=== PATIENT | male | born 1950 | race Caucasian/White ===

== ENCOUNTER 2023-11-23 18:55 | Inpatient (IN) | payer MEDICARE, BC ==
[~2023-11-23] VITALS: Ht 182.9 cm; Wt 133.0 kg
[~2023-11-23 18:55] MED LIST: NORepinephrine 1 mg/ml inj IV ONE
--- NOTE | 2023-11-23 19:07 | NUR ---
INTUBATING PT. RT AT BEDSIDE.
[2023-11-23] MEDS: LidoCAINE 2% Topical Jelly 11mL syringe (UROJET) TOP ONE (19:10)
[2023-11-23] MEDS: FENTANYL-0.9 % NACL/PF 100 ML IV SCH (19:10)
--- NOTE | 2023-11-23 19:14 | NUR ---
CALLED PHARMACY TO PREPARE DRIPS
[2023-11-23 19:15] VITALS: BP 123/64; PULSE 102; RESP 16; O2SAT 100
[2023-11-23 19:22] LABS: ABG BASE EXCESS -15.9 mmol/L (-2.0-3.0); ABG HCO3 12.6 mmol/L (21.0-28.0); ABG OXYGEN SATURATION 99.5 % (94.0-98.0); ABG PCO2 (T) 39.3 mmHg (35.0-48.0); ABG PH (T) 7.121 (7.350-7.450); ABG PO2 (T) 323.1 mmHg (83.0-108.0); ALLEN'S TEST Modified; FCOHb 0.2 % (0.5-1.5); FHHb 0.5 % (0.0-5.0); FMetHb 0.6 % (0.0-1.5); FO2Hb 98.7 % (94.0-98.0); MODE VENT - prvc; PATIENT TEMPERATURE 36.3; PEEP 5 cm H2O; RESPIRATORY RATE 16 b/min; TIDAL VOLUME 550 mL
[2023-11-23 19:28] LABS: BASOPHILS # (AUTO) 0.1 X10'3 (0-0.2); BASOPHILS % (AUTO) 1.2 % (0-1); EOSINOPHILS # (AUTO) 0.1 X10'3 (0-0.9); HEMATOCRIT 28.6 % (42.0-52.0); LYMPHOCYTES # (AUTO) 1.9 X10'3 (1.1-4.8); MEAN CORPUSCULAR HEMOGLOBIN 30.1 PG (27.0-31.0); MEAN CORPUSCULAR HGB CONC 31.6 g/dL (33.0-36.5); MEAN CORPUSCULAR VOLUME 95.2 FL (78-98); MEAN PLATELET VOLUME 7.2 FL (7.4-10.4); MONOCYTES # (AUTO) 0.2 X10'3 (0-0.9); MONOCYTES % (AUTO) 1.7 % (2-12); NEUTROPHILS # (AUTO) 9.6 X10'3 (1.8-7.7); NEUTROPHILS % (AUTO) 80.1 % (42-75); PLATELET COUNT 185 X10'3 (140-440); RED BLOOD COUNT 3.01 X10'6 (4.70-6.10); WHITE BLOOD COUNT 11.9 X10'3 (4.5-11.0)
--- NOTE | 2023-11-23 19:30 | NUR ---
CALLED PHARMACY TO REQUEST SEDATION MED AGAIN. THEY STATE THEY WILL BRING MEDS.
[2023-11-23 19:38] LABS: INR 1.4 INR; PROTHROMBIN TIME 14.7 SECONDS (9.0-12.0)
[2023-11-23 19:46] LABS: ALANINE AMINOTRANSFERASE 85 U/L (12-78); ALBUMIN 1.3 G/DL (3.4-5.0); ALBUMIN/GLOBULIN RATIO 0.4 (1.1-1.5); ALKALINE PHOSPHATASE 132 IU/L (46-116); ANION GAP 14 (8-16); ASPARTATE AMINO TRANSFERASE 343 U/L (10-37); BILIRUBIN,TOTAL 1.2 MG/DL (0.1-1.0); BLOOD UREA NITROGEN 48 MG/DL (7-18); BUN/CREATININE RATIO 16.1 (10.0-20.0); CALCIUM 7.3 MG/DL (8.5-10.1); CHLORIDE 106 MMOL/L (99-107); CREATININE 2.99 MG/DL (0.60-1.10); GLUCOSE 179 MG/DL (70-104); POTASSIUM 4.1 MMOL/L (3.5-5.1); SODIUM 138 MMOL/L (135-145); TOTAL CARBON DIOXIDE 18.2 MMOL/L (24-32); TOTAL PROTEIN 4.4 G/DL (6.4-8.2); eCRCL 24 ML/MIN; eGFR 21 ML/MIN
--- NOTE | 2023-11-23 19:46 | NUR ---
WAITING FOR BP TO IMPROVE AND SEDATION MEDICATION TO BE DELIVERED PRIOR TO TAKING PT TO CT. AWARE. FLUIDS RUNNING.
[2023-11-23] MEDS: normal saline 1000ML IV soln IVB ONE ×2 (19:47)
[2023-11-23 19:53] LABS: PRO BRAIN NATRIURETIC PEPTIDE 11466 PG/ML (0-125)
--- NOTE | 2023-11-23 20:15 | NUR ---
SPOKE TO . AGREES PT IS MORE STABLE AT THIS POINT FOR CT TRIP. RT CALLED. CALLED CT/
[2023-11-23 20:27] LABS: ETHANOL < 10 MG/DL (<10)
[2023-11-23 20:32] LABS: BILIRUBIN,URINE SMALL (Neg); CLARITY,URINE SLIGHTLY CLOUDY (Clear); COLOR,URINE YELLOW (Yellow); GLUCOSE, URINE NEGATIVE (Neg); KETONES,URINE TRACE mg/dl (Neg); LEUKOCYTE ESTERASE ,URINE NEGATIVE (Neg); NITRITES, URINE NEGATIVE (Neg); OCCULT BLOOD,URINE TRACE-INTACT (Neg); PH,URINE 5.5 (4.8-8.0); PROTEIN,URINE 30 mg/dl (Neg)
[2023-11-23 20:38] LABS: UA COLLECTION TYPE FOLEY CATH
[2023-11-23 20:40] LABS: HYALINE CASTS 0-3 /LPF (NEGATIVE); WBC,URINE 0-4 /HPF (0-4)
[2023-11-23 20:41] LABS: BACTERIA,URINE 1+ /HPF (Neg); COARSE GRANULAR CAST 0-3 /LPF (NEGATIVE); SQUAMOUS EPITHELIAL CELL,UR FEW /LPF (FEW)
[2023-11-23 20:46] VITALS: BP 118/64; PULSE 98; RESP 16; O2SAT 98
--- NOTE | 2023-11-23 20:47 | NUR ---
PT IS BACK FROM CT.
[2023-11-23] MEDS: MIDAZOLAM IN NACL,ISO-OSMOT/PF 100 ML IV SCH (20:58)
[2023-11-23] MEDS: CefTRIAXone/D5W-Rocephin 1gm 50 ML IV ONE (20:58)
[2023-11-23 21:04] VITALS: TEMP 97.2
--- NOTE | 2023-11-23 21:10 | NUR ---
REASSESSED PT AT [facility].
--- NOTE | 2023-11-23 21:24 | NUR ---
MD REQUESTED RT TO MOVE ETT TUBE BACK PER RADIOLOGIST REPORT. RT AT BEDSIDE.
[2023-11-23 21:28] VITALS: BP 88/58; PULSE 99; RESP 16; O2SAT 100
[2023-11-23] MEDS: azithromycin/NS 500mg/250ml 250 ML IV ONE (21:48)
[2023-11-23 21:55] LABS: URINE AMPHETAMINE SCREEN NEGATIVE (Neg); URINE BARBITUATE SCREEN NEGATIVE (Neg); URINE BENZODIAZEPINES SCREEN NEGATIVE (Neg); URINE CANNABINOID SCREEN NEGATIVE (Neg); URINE COCAINE SCREEN NEGATIVE (Neg); URINE METHADONE SCREEN NEGATIVE (Neg); URINE OPIATE SCREEN NEGATIVE (Neg); URINE PHENCYCLIDINE SCREEN NEGATIVE (Neg)
[2023-11-23] MEDS ORDERED: ondansetron/PF 4mg/2ml inj IV PRN (22:45)
[2023-11-23] MEDS ORDERED: acetaminophen 325mg tablet PO PRN ×2 (22:45)
[2023-11-23] MEDS: normal saline 1000ml 1,000 ML IV SCH (22:45)
--- NOTE | 2023-11-23 22:51 | NUR ---
AT BEDSIDE PLACING CENTRAL LINE
[2023-11-23 23:15] VITALS: BP 81/53; PULSE 99; RESP 16; O2SAT 97
--- NOTE | 2023-11-23 23:16 | NUR ---
CXR AT BEDSIDE FOR CENTRAL LINE PLACEMENT CONFIRMATION. RT AT BEDSIDE RE-ASSESSING PT.
[2023-11-23] MEDS: NORepinephrine 8mg/ 250ml NS 250 ML IV PRN (23:37)
--- NOTE | 2023-11-23 23:40 | NUR ---
REVIEWED CXR AND STATES IT IS SAFE TO START MEDICATIONS ON PLACED CENTRAL LINE
--- NOTE | 2023-11-23 23:58 | NUR ---
AT BEDSIDE PERFORMING PARACENTESIS.
[2023-11-24] VITALS (27 sets, daily range): BP systolic 90–158; BP diastolic 51–75; PULSE 98–109; RESP 10–29; O2SAT 95–98
[2023-11-24 00:46] LABS: HEMOGLOBIN A1C 4.7 % (4.5-6.2)
[2023-11-24] MEDS: midazolam 100mg in NS 100ml 100 ML IV SCH (00:59)
--- NOTE | 2023-11-24 01:00 | NUR ---
pt to floor. connected to our monitors. no drips running on arrival. restarted norepi at 0.01 mcg/kg/min for low MAP
[2023-11-24] MEDS: nystatin 15 GM powder TP ONE (01:32)
--- NOTE | 2023-11-24 02:00 | NUR ---
Dr. Connor notified of anuria
[2023-11-24 02:21] LABS: LDH,BODY FLUID 120 U/L
[2023-11-24 02:49] LABS: TOTAL PROTEIN,BODY FLUID < 2.0 G/DL
--- NOTE | 2023-11-24 02:57 | NUR ---
[facility] called back. Pt will not be a candidate for donation. Notify them of cardiac if it progresses to that.
[2023-11-24 02:59] LABS: BASOPHILS # (AUTO) 0.1 X10'3 (0-0.2); BASOPHILS % (AUTO) 0.8 % (0-1); EOSINOPHILS % (AUTO) 0.2 % (0-6); HEMATOCRIT 35.4 % (42.0-52.0); HEMOGLOBIN 11.5 g/dl (14.0-17.9); LYMPHOCYTES # (AUTO) 0.6 X10'3 (1.1-4.8); LYMPHOCYTES % (AUTO) 4.1 % (21-51); MEAN CORPUSCULAR HEMOGLOBIN 30.2 PG (27.0-31.0); MEAN CORPUSCULAR HGB CONC 32.4 g/dL (33.0-36.5); MEAN PLATELET VOLUME 7.7 FL (7.4-10.4); MONOCYTES # (AUTO) 0.7 X10'3 (0-0.9); NEUTROPHILS # (AUTO) 12.9 X10'3 (1.8-7.7); NEUTROPHILS % (AUTO) 89.9 % (42-75); PLATELET COUNT 266 X10'3 (140-440); RED BLOOD COUNT 3.81 X10'6 (4.70-6.10); RED CELL DISTRIBUTION WIDTH 15.9 % (11.5-14.5); WHITE BLOOD COUNT 14.4 X10'3 (4.5-11.0)
[2023-11-24 03:15] LABS: BFAPPEAR HAZY; BFSOURCE ASCITES FLD
[2023-11-24 03:16] LABS: BF MESOTHELIAL CELLS FEW; BF RBC COUNT 72 /CU MM; BF WBC COUNT 48 /CU MM (0-1000); BFCOLOR YELLOW; BFVOLUME 1050 ML; LYMPHOCYTES,BODY FLUID 57 %; MONOCYTES,BODY FLUID 40 %; NEUTROPHILS,BODY FLUID 3 %
[2023-11-24 03:23] LABS: ALANINE AMINOTRANSFERASE 233 U/L (12-78); ALBUMIN 1.5 G/DL (3.4-5.0); ALBUMIN/GLOBULIN RATIO 0.4 (1.1-1.5); ALKALINE PHOSPHATASE 154 IU/L (46-116); ANION GAP 14 (8-16); BILIRUBIN,TOTAL 1.6 MG/DL (0.1-1.0); BLOOD UREA NITROGEN 48 MG/DL (7-18); BUN/CREATININE RATIO 15.2 (10.0-20.0); CALCIUM 7.4 MG/DL (8.5-10.1); CHLORIDE 106 MMOL/L (99-107); CREATININE 3.15 MG/DL (0.60-1.10); GLUCOSE 99 MG/DL (70-104); MAGNESIUM 1.9 MG/DL (1.5-2.4); PHOSPHORUS 4.8 MG/DL (2.3-4.5); POTASSIUM 3.7 MMOL/L (3.5-5.1); SODIUM 139 MMOL/L (135-145); TOTAL CARBON DIOXIDE 19.4 MMOL/L (24-32); TOTAL PROTEIN 5.2 G/DL (6.4-8.2); eCRCL 23 ML/MIN; eGFR 19 ML/MIN
[2023-11-24 03:24] LABS: ASPARTATE AMINO TRANSFERASE 1047 U/L (10-37)
[2023-11-24 03:41] LABS: ABG BASE EXCESS -6.3 mmol/L (-2.0-3.0); ABG HCO3 16.7 mmol/L (21.0-28.0); ABG OXYGEN SATURATION 95.3 % (94.0-98.0); ABG PCO2 (T) 25.2 mmHg (35.0-48.0); ABG PH (T) 7.434 (7.350-7.450); ABG PO2 (T) 69.7 mmHg (83.0-108.0); ALLEN'S TEST Modified; FCOHb 0.3 % (0.5-1.5); FHHb 4.7 % (0.0-5.0); FMetHb 0.3 % (0.0-1.5); FO2Hb 94.7 % (94.0-98.0); MODE CMV PRVC IT 1.0; PATIENT TEMPERATURE 35.7; PEEP 5 cm H2O; RESPIRATORY RATE 16 b/min; TIDAL VOLUME 550 mL; TOTAL HEMOGLOBIN 12.5 G/dl (13.5-17.5)
[2023-11-24] MEDS: sodium bicarbonate (8.4%) inj. 100 MEQ in dextrose 5%-water 1,000 ML IV SCH (04:02)
--- NOTE | 2023-11-24 06:30 | NUR ---
Patient in room CICU 2013. I have received report from [place] and had the opportunity to ask questions and assume patient care.
[2023-11-24] MEDS: PERFLUTREN PROTEIN-A MICROSPHR (Optison) 0.22 MG/ML 3ML VIAL IV ONE (07:55)
[2023-11-24] MEDS: famotidine/PF 10 mg/ml inj IV SCH (08:21)
[2023-11-24] MEDS: nystatin 15 GM powder TP SCH (08:21)
--- NOTE | 2023-11-24 10:00 | NUR ---
UPDATE TO MD. PT WITH UNEQUAL NONREACTIVE PUPILS, NO CORNEAL REFLEXES, NO COUGH, NO GAG. PT DOES OVER BREATH VENT. MD SPOKE WITH AND DAUGHTER. DECISION FOR DNR
[2023-11-24] MEDS ORDERED: KEN0.1O TOP (11:22)
[2023-11-24] MEDS ORDERED: MONT-40 PO (11:22)
[2023-11-24] MEDS ORDERED: FURO-149 PO (11:22)
[2023-11-24] MEDS ORDERED: METF-900 PO (11:22)
[2023-11-24] MEDS ORDERED: CLOT15CR73 TOP (11:22)
[2023-11-24] MEDS ORDERED: INSU200I4 SQ (11:22)
[2023-11-24] MEDS ORDERED: ZOLP5TAB8 PO (11:22)
[2023-11-24] MEDS ORDERED: POTASSIUM CHLORIDE PO (11:22)
[2023-11-24] MEDS ORDERED: LISI20TA28 PO (11:22)
[2023-11-24] MEDS ORDERED: CHOL100053 PO (11:22)
[2023-11-24] MEDS ORDERED: TRAZ-256 PO (11:22)
[2023-11-24] MEDS ORDERED: MAGN250T11 PO (11:22)
[2023-11-24] MEDS ORDERED: KETO120S5 TP (11:22)
[2023-11-24] MEDS ORDERED: CARV-50 PO (11:22)
[2023-11-24] MEDS ORDERED: HYDR12.55 PO (11:22)
[2023-11-24] MEDS ORDERED: HYDR-3686 PO (11:22)
[2023-11-24] MEDS ORDERED: ATOR80TA PO (11:22)
[2023-11-24] MEDS ORDERED: GLIP5TAB26 PO (11:22)
--- NOTE | 2023-11-24 12:05 | NUR ---
Low sherlyn consult: Pt admit for cardiac arrest in the field, respiratory failure, and distended abd likely ascites from chronic liver disease per EMR. Pt intubated on 11/22 per EMR. If pt remains intubated for prolonged time then would benefit from nutrition support. Pt presents with a low sherlyn score of 10 per EMR. Per RN physical assessment pt has skin tears to elbow, bruising, and scratch nunn on flanks. Wound care has been consulted at this time pending [facility] note. No BM yet per EMR. Will continue to monitor and make recommendations as appropriate. Recommendations: 1.Initiate nutrition support with prolonged intubation 2.Routine bowel care 3.Weekly scaled wts Addendum: 11/24/23 at [address] Amended: Links added.
[2023-11-24] MEDS ORDERED: morphine 10mg/0.5ml (conc. morphine) oral syringe PO PRN (14:40)
[2023-11-24] MEDS ORDERED: acetaminophen 325mg tablet PO PRN (14:40)
[2023-11-24] MEDS ORDERED: LORazepam 2 mg/ml vial IV PRN (14:40)
[2023-11-24] MEDS ORDERED: morphine 10mg/ml inj. IV PRN (14:40)
--- NOTE | 2023-11-24 14:50 | NUR ---
FAMILY DONE VISITING-MD NOTIFIED THEY ARE READY TO EXTUBATE- DONE
--- NOTE | 2023-11-24 15:07 | NUR ---
RN IS TO DOCUMENT YES TO ALL APPLICABLE AREAS Pronouncement of : 1. Time Physician Notified: 1506 2. Date of : 11/24/23 3. Time of : 1506 4. DNR/Withdraw life support documented:YES 5. Monitor strip has been placed on chart:YES 6. Assessment process is of one-minute duration and includes following criteria: a) Patient is unresponsive to all stimuli: YES b) Pupils fixed and non-reactive: YES c) Auscultation of precordium reveals absence of heart tones: YES d) Auscultation of lungs reveals absence of breath sounds: YES e) Absence of blood pressure / all vital signs: YES f) QRS complexes are not present on monitor / EKG strip:YES g) Pacer spikes without capture: N/A 4. Comments:
[2023-11-24] MEDS ORDERED: famotidine/PF 10 mg/ml inj IV SCH (20:00)
--- NOTE | 2023-11-24 20:02 | NUR ---
1954 - pt picked up by [facility] - body wrapped - family present - no belongings noted
== END 2023-11-24 20:00 | DRG 871 ==
LOC: EDBD 18:56 → ER 18:56 → ED HOLD 22:49 → CICU 2S 11-24 00:49
PROVIDERS: ADMIT Internal Medicine Critical Care Medicine; ATTEND Internal Medicine Critical Care Medicine
PROC: 0BH17EZ Insertion of Endotracheal Airway into Trachea, Via Natural or Artificial Opening (ICD-10-PCS; 2023-11-23)
PROC: 5A1935Z Respiratory Ventilation, Less than 24 Consecutive Hours (ICD-10-PCS; 2023-11-23)
PROC: 02HV33Z Insertion of Infusion Device into Superior Vena Cava, Percutaneous Approach (ICD-10-PCS; 2023-11-23)
PROC: 5A12012 Performance of Cardiac Output, Single, Manual (ICD-10-PCS; principal; 2023-11-24)
PROC: 0W9G3ZZ Drainage of Peritoneal Cavity, Percutaneous Approach (ICD-10-PCS; 2023-11-24)
DX: A41.9 Sepsis, unspecified organism (principal); E43 Unspecified severe protein-calorie malnutrition; J96.90 Respiratory failure, unspecified, unspecified whether with hypoxia or hypercapnia; J18.9 Pneumonia, unspecified organism; R65.21 Severe sepsis with septic shock; N17.0 Acute kidney failure with tubular necrosis; R18.8 Other ascites; I46.9 Cardiac arrest, cause unspecified; K72.90 Hepatic failure, unspecified without coma; N18.30 Chronic kidney disease, stage 3 unspecified; I50.9 Heart failure, unspecified; Z91.148 Patient's other noncompliance with medication regimen for other reason; Z74.01 Bed confinement status; Z87.891 Personal history of nicotine dependence; Z51.5 Encounter for palliative care; Z68.39 Body mass index [BMI] 39.0-39.9, adult
CPT/HCPCS: 36415; 36600; 70450; 71045; 71250; 72125; 74176; 80053; 80305; 80320; 81001; 82140; 82803; 82948; 83036; 83605; 83615; 83735; 83880; 84100; 84145; 84157; 84484; 85018; 85025; 85610; 86885; 86900; 86901; 87040; 87070; 87077; 87081; 87186; 88108; 88305; 88341; 88342; 89051; 93005; 94003; 94799; 96365; 96367; 99291; A4333; A6212; A6258; A9900; C1758; G0378; J0171; J0456; J0696; J3010; J3490; J7030; J7040; J7070